=== PATIENT | male | born 1985 | race Two or more races ===

== ENCOUNTER 2016-10-24 19:26 | Emergency (ER) | payer MEDICAID ==
[~2016-10-24] VITALS: Ht 172.7 cm; Wt 63.5 kg
[2016-10-24 19:41] VITALS: BP 148/100
== END 2016-10-24 23:40 | disposition left against medical advice (07) ==
LOC: EDBD 19:26 → ER 19:29
DX: F41.9 Anxiety disorder, unspecified (principal); Z53.21 Procedure and treatment not carried out due to patient leaving prior to being seen by health care provider